=== PATIENT | male | born 1995 | race Caucasian/White ===

== ENCOUNTER 2017-01-03 17:05 | Emergency (ER) | payer OTHER ==
[~2017-01-03] VITALS: Ht 170.2 cm; Wt 70.5 kg
[~2017-01-03 17:05] MED LIST: METH18
[2017-01-03 17:06] VITALS: BP 141/68; PULSE 77; RESP 16; TEMP 98.2; O2SAT 99
--- NOTE | 2017-01-03 17:17 | PD ---
HPI . Cough, congestion and sore throat for 2 weeks Chief Complaint: Cold / Flu Symptoms Time Seen by Provider: 17:16 Travel History International Travel<30 days: No Contact w/Intl Traveler<30days: No Traveled to known affect area: No History of Present Illness HPI 21-year-old male here with complaints of cough, congestion and sore throat for 2 weeks. Patient says that about a week ago he had a temperature of 102 that subsided. He says he's been coughing frequently and has been unable to sleep secondary to cough. He says that he has a slight sore throat and has been difficult for him to swallow [id number] medications. His main issue is that the cough is keeping him up at night and he decided to come in for evaluation. He denies any recent fever or chills. He tells me his girlfriend is also sick. PFSH Past Medical History ADHD: Yes Diminished Hearing: No Psychiatric: Yes (ADHD) Social History Alcohol Use: No Tobacco Use: Yes Substance Use: No Allergies-Medications (Allergen,Severity, Reaction): Coded Allergies: No Known Allergies (Verified Allergy, Mild, 08/08/06) Reported Meds & Prescriptions Reported Meds & Active Scripts Active Prednisone 50 Mg Tab 50 Mg PO DAILY Augmentin (Amoxicillin-Clavulanate) 875-125 mg Tab 875 Mg PO BID not for use in CrCl <30 ml/min. Review of Systems General / Constitutional: No: Fever Eyes: No: Visual changes HENT: Positive: Sore Throat, Congestion, No: Headaches Cardiovascular: No: Chest Pain or Discomfort Respiratory: Positive: Cough, No: Shortness of Breath Gastrointestinal: No: Abdominal Pain Genitourinary: No: Dysuria Musculoskeletal: No: Pain Skin: No Rash Neurologic: No: Weakness Psychiatric: No: Depression Endocrine: No: Polydipsia Hematologic/Lymphatic: No: Easy Bruising Physical Exam Narrative GENERAL: AAO x 3, no acute distress, Well-nourished, well-developed patient. SKIN: Warm and dry. No visible rashes or bruising. HEAD: Normocephalic and atraumatic. EYES: No scleral icterus. No injection or drainage. EOM intact, PERRLA ENT: No nasal drainage noted. Mucous membranes pink. Airway patent. TMs with air bubbles bilaterally right greater than left. Posterior pharynx with postnasal drip. NECK: Supple, trachea midline. No JVD. No lymphadenopathy CARDIOVASCULAR: Regular rate and rhythm without murmurs, gallops, or rubs. RESPIRATORY: Breath sounds equal bilaterally. No accessory muscle use. No rhonchi or rales. No wheezing. Dry cough heard once during examination GASTROINTESTINAL: Abdomen soft, non-tender, nondistended. EXTREMITIES: No cyanosis or edema. BACK: Nontender without obvious deformity. No CVA tenderness. PSYCH: AAO x 3, normal affect. Data Data Last Documented VS Vital Signs Date Time Temp Pulse Resp B/P Pulse Ox O2 Delivery O2 Flow Rate FiO2 01/03/17 17:06 98.2 77 16 141/68 99 MDM Medical Decision Making Medical Screen Exam Complete: Yes Emergency Medical Condition: Yes Medical Record Reviewed: Yes Differential Diagnosis Bronchitis, sinusitis, less likely influenza, less likely pneumonia Narrative Course 21-year-old male here with complaints of cough, congestion and sore throat for 2 weeks. Patient says that about a week ago he had a temperature of 102 that subsided. He says he's been coughing frequently and has been unable to sleep secondary to cough. He says that he has a slight sore throat and has been difficult for him to swallow [id number] medications. His main issue is that the cough is keeping him up at night and he decided to come in for evaluation. He denies any recent fever or chills. He tells me his girlfriend is also sick. Patient seen and examined. He appears to have an acute sinusitis as well as bronchitis. I've advised him that I will treat him with a course of Augmentin for sinusitis and prednisone for bronchitis. I discussed the cough can linger for 6-8 weeks. I recommended he follow-up with his primary care provider. I recommended smoking cessation. Patient verbalized understanding of instructions, questions were answered, and thanked me for their care. I advised them if their condition worsens, please return to the nearest emergency room for further care. Diagnosis Primary Impression: Acute sinusitis Qualified Code: J01.90 - Acute sinusitis, recurrence not specified, unspecified location Additional Impression: Acute bronchitis Qualified Code: J20.9 - Acute bronchitis, unspecified organism Patient Instructions: Acute Bronchitis (ED), General Instructions, Sinusitis ( ED) Additional Instructions: As we discussed the cough can last 6-8 weeks. Take medications as prescribed. If you are a smoker, try to quit. Follow up with your primary care provider. If you develop sudden onset or worsening of shortness or breath, please go to the nearest emergency room. Please return to emergency department if your symptoms return or worsen. Follow up with your primary care provider. Take medications as prescribed. If your symptoms persists past treatment, please follow up with your primary care provider or return to the emergency department. Med/Other Pt SpecificInfo: Prescription(s) given Scripts Prednisone 50 Mg Tab50 Mg PO DAILY #5 TAB Prov:Izabela Mccracken DO 01/03/17 Amoxicillin-Clavulanate (Augmentin)875-125 mg [id number] Mg PO BID #20 TAB not for use in CrCl <30 ml/min. Prov:Izabela Mccracken DO 01/03/17 Disposition: 01 DISCHARGE HOME Condition: Stable Caridad Bartlett January 03, 2017 17:17
[2017-01-03] MEDS ORDERED: PRED50 PO (17:20)
[2017-01-03] MEDS ORDERED: AUGM875T PO (17:20)
== END 2017-01-03 17:54 | disposition home or self-care (01) ==
LOC: NEPK 17:05
DX: J01.90 Acute sinusitis, unspecified (principal); J20.9 Acute bronchitis, unspecified; Z72.0 Tobacco use
CPT/HCPCS: 99283